=== PATIENT | male | born 1970 | race Asian ===

== ENCOUNTER 2025-02-02 13:27 | Inpatient (IN) | payer BC ==
[~2025-02-02 13:27] MED LIST: Iopamidol-370 76% 500 ML MDV (1 ML CHARGE) ONE
[2025-02-02 14:22] LABS: #Basophils 0.03 10x3/uL (0.0-0.2); #Eosinophils Less than 0.03 10x3/uL (0.0-0.7); #Monocytes 0.34 10x3/uL (0.11-0.59); #Neutrophils 4.73 10x3/uL (1.40-6.50); %Basophils 0.5 % (0.0-1.0); %Eosinophils 0.2 % (0.0-10.0); %Lymphocytes 12.0 % (21.0-51.0); %Monocytes 5.8 % (0.0-10.0); %Neutrophils 81.0 % (42.0-75.0); Hematocrit 44.6 % (42.0-52.0); Hemoglobin 15.5 g/dL (14.0-18.0); Mean Corpuscular Hemoglobin 31.3 pg (27.0-31.0); Mean Corpuscular Volume 89.9 fL (78.0-98.0); Platelet Count 257 10x3/uL (130-400); Red Blood Cell (RBC) Count 4.96 mill/uL (4.70-6.10); White Blood Cell (WBC) Count 5.84 10x3/uL (4.8-10.8)
[2025-02-02 14:43] LABS: ALT (SGPT) 23 U/L (Less than 45); AST (SGOT) 14 U/L (11-34); Albumin 3.1 g/dL (3.1-4.5); Alkaline Phosphatase 84 U/L (40-110); Anion Gap 12 mmol/L (10-20); BUN (Urea Nitrogen) 19 mg/dL (8.4-25.7); Bilirubin, Total 0.8 mg/dL (0.3-1.2); Calc. Creatinine Clearance 0 mL/min (70-130); Calcium 8.7 mg/dL (7.8-10.44); Carbon Dioxide 23 mmol/L (22-29); Chloride 102 mmol/L (98-107); Globulin 3.4 g/dL (2.4-3.5); Glucose 458 mg/dL (70-105); Lipase 28 U/L (8-78); Potassium 4.4 mmol/L (3.5-5.1); Sodium 133 mmol/L (136-145)
[2025-02-02 14:54] LABS: Bacteria/HPF None Seen HPF (None Seen); CAUTI Indications for Culture Dysuria,urgency,freq; Glucose, Urine (Dipstick) Greater than 1000 mg/dL (Negative); Leukocyte Negative Leu/uL (Negative); Protein, Urine (Dipstick) Negative (Neg-Trace); RBC/HPF None Seen HPF (0-3); Specific Gravity, Urine 1.035 (1.002-1.036); WBC/HPF None Seen HPF (0-3)
[2025-02-02 14:56] LABS: Urine Culture Reflex No No
[2025-02-02] MEDS ORDERED: Guaifenesin DM 100-10/5 ML UDCUP PO PRN (19:30)
[2025-02-02] MEDS ORDERED: Acetaminophen 325 MG TAB PO PRN (19:30)
[2025-02-02] MEDS ORDERED: Melatonin 3 MG TAB PO PRN (19:30)
[2025-02-02] MEDS ORDERED: Ondansetron PF 4 MG/2 ML Vial IVP PRN (19:30)
[2025-02-02] MEDS ORDERED: Electrolyte Replacement Protocol 1 EACH FS SCH (19:30)
[2025-02-02] MEDS ORDERED: Glucagon 1 MG/ML KIT IM PRN (19:36)
[2025-02-02] MEDS ORDERED: Dextrose 50% Abboject 50 ML SYRINGE SLOW IVP PRN (19:36)
[2025-02-02] MEDS ORDERED: Magnesium Sulfate In Water 4 GM in Premix 1 BAG IVPB PRN (19:45)
[2025-02-02] MEDS ORDERED: PHOS-NAK 1 PKT PACK PO PRN (19:45)
[2025-02-02] MEDS ORDERED: Potassium Chloride 20 MEQ in Premix 1 BAG IVPB PRN (19:45)
[2025-02-02] MEDS: Famotidine 20 MG TAB PO SCH (21:36)
[2025-02-02 21:50] VITALS: BMI 26.1
[2025-02-02] MEDS: Insulin Glargine 30 UNITS/0.3 ML VIAL SC SCH (22:49)
[2025-02-03 04:40] LABS: Campy jejuni + coli by PCR Negative (Negative); STEC Shiga Toxin 1+2 Negative (Negative); Salmonella spp. by PCR Negative (Negative); Shigella spp + EIEC by PCR Negative (Negative)
[2025-02-03 05:23] LABS: #Basophils Less than 0.03 10x3/uL (0.0-0.2); #Eosinophils Less than 0.03 10x3/uL (0.0-0.7); #Monocytes 0.41 10x3/uL (0.11-0.59); #Neutrophils 3.91 10x3/uL (1.40-6.50); %Basophils 0.4 % (0.0-1.0); %Eosinophils 0.2 % (0.0-10.0); %Lymphocytes 17.7 % (21.0-51.0); %Monocytes 7.7 % (0.0-10.0); %Neutrophils 73.4 % (42.0-75.0); Hematocrit 40.2 % (42.0-52.0); Hemoglobin 13.8 g/dL (14.0-18.0); Mean Corpuscular Hemoglobin 30.7 pg (27.0-31.0); Mean Corpuscular Volume 89.5 fL (78.0-98.0); Platelet Count 233 10x3/uL (130-400); Red Blood Cell (RBC) Count 4.49 mill/uL (4.70-6.10); White Blood Cell (WBC) Count 5.32 10x3/uL (4.8-10.8)
[2025-02-03 05:49] LABS: ALT (SGPT) 15 U/L (Less than 45); AST (SGOT) 13 U/L (11-34); Albumin 2.7 g/dL (3.1-4.5); Alkaline Phosphatase 70 U/L (40-110); Anion Gap 11 mmol/L (10-20); BUN (Urea Nitrogen) 16 mg/dL (8.4-25.7); Bilirubin, Total 0.6 mg/dL (0.3-1.2); Calc. Creatinine Clearance 157 mL/min (70-130); Calcium 8.1 mg/dL (7.8-10.44); Carbon Dioxide 22 mmol/L (22-29); Chloride 105 mmol/L (98-107); Globulin 2.9 g/dL (2.4-3.5); Glucose 223 mg/dL (70-105); Potassium 3.9 mmol/L (3.5-5.1); Sodium 134 mmol/L (136-145)
[2025-02-03] MEDS: GoLYTELY 4,000 ml Bottle PO SCH (17:24)
[2025-02-03] MEDS: Insulin Glargine 30 UNITS/0.3 ML VIAL SC SCH (20:40)
[2025-02-03] MEDS: cefTRIAXone\\ROCEPHIN 1 GM in Sodium Chloride 0.9% 100 ML IVPB SCH (20:40)
[2025-02-04 06:44] LABS: #Basophils Less than 0.03 10x3/uL (0.0-0.2); #Eosinophils Less than 0.03 10x3/uL (0.0-0.7); #Monocytes 0.43 10x3/uL (0.11-0.59); #Neutrophils 4.11 10x3/uL (1.40-6.50); %Basophils 0.2 % (0.0-1.0); %Eosinophils 0.0 % (0.0-10.0); %Lymphocytes 19.6 % (21.0-51.0); %Monocytes 7.5 % (0.0-10.0); %Neutrophils 72.2 % (42.0-75.0); Hematocrit 39.3 % (42.0-52.0); Hemoglobin 13.9 g/dL (14.0-18.0); Mean Corpuscular Hemoglobin 31.0 pg (27.0-31.0); Mean Corpuscular Volume 87.7 fL (78.0-98.0); Platelet Count 258 10x3/uL (130-400); Red Blood Cell (RBC) Count 4.48 mill/uL (4.70-6.10); White Blood Cell (WBC) Count 5.70 10x3/uL (4.8-10.8)
[2025-02-04 06:55] LABS: Anion Gap 11 mmol/L (10-20); BUN (Urea Nitrogen) 13 mg/dL (8.4-25.7); Calc. Creatinine Clearance 157 mL/min (70-130); Calcium 8.6 mg/dL (7.8-10.44); Carbon Dioxide 26 mmol/L (22-29); Chloride 105 mmol/L (98-107); Glucose 138 mg/dL (70-105); Potassium 3.8 mmol/L (3.5-5.1); Sodium 138 mmol/L (136-145)
[2025-02-04 07:18] LABS: Hep A IgM AB NONREACTIVE (NonReactive); Hep A IgM S/CO 0.36 S/CO (0-0.79); Hep B Core IgM Index 0.13 S/CO (0-0.79); Hep B Surf Ag NONREACTIVE S/CO (NonReactive); Hep C IgG Ab NONREACTIVE S/CO (NonReactive); Hep C Index 0.07 S/CO (0-0.79)
[2025-02-04] MEDS ORDERED: PROPOFOL 20 ML ONE ×2 (07:41→08:11)
[2025-02-05 06:11] LABS: #Basophils Less than 0.03 10x3/uL (0.0-0.2); #Eosinophils Less than 0.03 10x3/uL (0.0-0.7); #Monocytes 0.56 10x3/uL (0.11-0.59); #Neutrophils 6.44 10x3/uL (1.40-6.50); %Basophils 0.2 % (0.0-1.0); %Eosinophils 0.1 % (0.0-10.0); %Lymphocytes 16.6 % (21.0-51.0); %Monocytes 6.6 % (0.0-10.0); %Neutrophils 75.8 % (42.0-75.0); Hematocrit 41.5 % (42.0-52.0); Hemoglobin 14.3 g/dL (14.0-18.0); Mean Corpuscular Hemoglobin 31.0 pg (27.0-31.0); Mean Corpuscular Volume 90.0 fL (78.0-98.0); Platelet Count 272 10x3/uL (130-400); Red Blood Cell (RBC) Count 4.61 mill/uL (4.70-6.10); White Blood Cell (WBC) Count 8.50 10x3/uL (4.8-10.8)
[2025-02-05 06:35] LABS: Anion Gap 12 mmol/L (10-20); BUN (Urea Nitrogen) 13 mg/dL (8.4-25.7); Calc. Creatinine Clearance 128 mL/min (70-130); Calcium 9.0 mg/dL (7.8-10.44); Carbon Dioxide 27 mmol/L (22-29); Chloride 102 mmol/L (98-107); Glucose 169 mg/dL (70-105); Potassium 4.6 mmol/L (3.5-5.1); Sodium 136 mmol/L (136-145)
[2025-02-05 11:59] VITALS: BP 146/80; TEMP 98.3
== END 2025-02-05 12:11 | disposition home or self-care (01) | DRG 387 ==
LOC: ERS 13:27 → T4-B 19:37
PROVIDERS: ADMIT Internal Medicine; ATTEND Internal Medicine
PROC: 3E03329 Introduction of Other Anti-infective into Peripheral Vein, Percutaneous Approach (ICD-10-PCS; principal; 2025-02-04)
PROC: 0DBG8ZX Excision of Left Large Intestine, Via Natural or Artificial Opening Endoscopic, Diagnostic (ICD-10-PCS; 2025-02-04)
DX: K51.90 Ulcerative colitis, unspecified, without complications (principal); Z88.2 Allergy status to sulfonamides; E11.65 Type 2 diabetes mellitus with hyperglycemia; T38.0X5A Adverse effect of glucocorticoids and synthetic analogues, initial encounter
CPT/HCPCS: 36415; 36416; 74177; 80048; 80053; 80074; 81001; 83036; 83605; 83690; 84484; 85025; 86480; 87324; 87449; 87505; 88305; 88342; 93005; 96374; J0696; J1815; J2704; J2919; J7030; Q9967